=== PATIENT | male | born 2000 | race Caucasian/White ===

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

== ENCOUNTER → 2023-01-24 14:16 | Outpatient (BNVA) | payer MEDICAID, SELFPAY | PROVIDERS: Family Provider Family Medicine; PCP Family Medicine; Visit Provider Nurse Practitioner Family | DX: R05.9 Cough, unspecified (principal); Z20.822 Contact with and (suspected) exposure to COVID-19 | CPT/HCPCS: 87400; 87426 ==

== ENCOUNTER 2023-04-10 13:06 | Emergency (ER) | payer MEDICAID, SELFPAY ==
[2023-04-10 13:10] VITALS: BMI 25.7
[2023-04-10 13:12] VITALS: BP 164/84; PULSE 74; RESP 16; TEMP 36.9; O2SAT 94
--- NOTE | 2023-04-10 13:43 | W.ED.OVERDOS ---
HPI - Overdose General: Chief Complaint: Overdose Stated Complaint: mushroom feels sick Time Seen by Provider: 04/10/23 13:13 History of Present Illness: This patient is a 22-year-old white male who presents to the emergency department for evaluation of nausea following ingestion of psychedelic mushrooms. Patient states that his heart rate was slow as well. He is feeling better now. Review of Systems General: Reports: 10 or more systems reviewed and unremarkable except in HPI and below Card: Reports: palpitations GI: Reports: nausea PFSH ED PFSH: Social History Smoking and tobacco status: current every day smoker cigarettes Alcohol intake: never Current occupation: saw [employer] Physical Exam Const: COMMON NORMALS: no acute distress and patient oriented x3 GENERAL APPEARANCE: cooperative HENMT: COMMON NORMALS: normocephalic, Normal nasal mucous membranes and turbinates present, moist oral mucous membranes and oropharynx normal HEAD & SCALP: normocephalic FACE & SINUS: normal facial exam NOSE: Normal nasal mucous membranes and turbinates present THROAT: posterior oropharynx normal Eye: COMMON NORMALS: Equal, round and reactive pupils present and EOMs intact bilaterally PUPIL: Yes Equal, round and reactive pupils present and Yes Dilated pupils bilaterally Resp: COMMON NORMALS: normal respiratory effort and clear to auscultation bilaterally AUSCULTATION: clear to auscultation bilaterally Cardio: COMMON NORMALS: regular rate and No murmurs present (Cardio) RATE: regular rate GI: COMMON NORMALS: Normal to inspection, nondistended, normoactive bowel sounds present Neuro: COMMON NORMALS: patient oriented x3, CN's II-XII intact bilaterally, no focal motor deficits and no sensory deficits noted Psych: COMMON NORMALS: mental status grossly normal, cooperative, denies homicidal ideation and denies suicidal ideation Skin: COMMON NORMALS: no rashes or lesions noted GENERAL SKIN EXAM: no rashes or lesions noted Course Vital Signs: Vital signs: Vital Signs Temperature 98.5 F 04/10/23 13:12 Pulse Rate 74 04/10/23 13:12 Respiratory Rate 16 04/10/23 13:12 Blood Pressure 164/84 04/10/23 13:12 Pulse Oximetry 94 04/10/23 13:12 Oxygen Delivery Me thod Room Air 04/10/23 13:12 MDM - Overdose Medical Decision Making Patient's adverse symptoms to the mushroom ingestion have resolved. No work-up necessary. No treatment necessary. No radiology studies performed this visit Discharge Plan Discharge Patient Disposition: Home Clinical Impression: Hallucinogenic mushrooms use disorder, mild Condition: Stable Prescriptions: No Action Zyrtec 10 mg Tablet 10 mg PO DAILY PRN (Reason: Allergy Symptoms) Discharge Orders: Discharge ED (Routine); Ordered 04/10/23 Ordered By: Alan Luong Referrals: Jerome Avalos DO [Primary Care Provider] - 1 week Discharge Activity: Resume usual activity Patient Instructions: Polysubstance Use Disorder (ED) Coding Level of Care Code ED Remote [facility] for [facility]
== END 2023-04-10 14:48 | disposition home or self-care (01) ==
PROVIDERS: Emergency Provider Emergency Medicine; PCP Family Medicine
DX: F16.90 Hallucinogen use, unspecified, uncomplicated (principal); F17.210 Nicotine dependence, cigarettes, uncomplicated
CPT/HCPCS: 99281